=== PATIENT | female | born 1975 | race Caucasian/White ===

== ENCOUNTER 2024-05-13 13:22 | Outpatient (REF) | payer OTHER, SELFPAY ==
--- NOTE | ~2024-05-13 | MR_ITS ---
EXAMINATION: MR SHOULDER WITH INTRA-ARTICULAR CONTRAST (ARTHROGRAM), RIGHT CLINICAL INFORMATION: Right shoulder pain following injury. Decreased range of motion. COMPARISON: Right shoulder fluoroscopic arthrography done earlier the same day. TECHNIQUE: MRI of the shoulder was performed following the intra-articular administration of a dilute gadolinium-containing solution (arthrogram) on a high-field scanner. FINDINGS: ROTATOR CUFF: Mild infraspinatus tendinosis. Posterior articular surface partial tearing measuring 1.0 x 0.9 cm (AP x ML). Bursal surface tendon fibers remain intact. No full-thickness rotator cuff tendon tear. No muscle atrophy or fatty infiltration. BICEPS: Intact. CORACOACROMIAL ARCH: The undersurface of the acromion is flat with no subacromial spur. [id number] acromioclavicular osteoarthritis. Trace fluid within the subacromial subdeltoid bursa, consistent with minimal bursitis. LABRUM/CAPSULE: Linear contrast within the undersurface of the superior, posterosuperior, posterior, and posteroinferior labrum, consistent with undersurface tearing. Blunting and heterogeneity through the anterior and anteroinferior labrum consistent with degenerative tearing. Intact inferior joint capsule. GLENOHUMERAL JOINT/MARROW: Mild chronic posterior subluxation of the humeral head. Posterior glenoid articular cartilage fissuring with subchondral cystic change and marginal osteophytes. No acute osseous injury. Loose body anterior to the glenoid measuring up to 1.1 cm. MR/MR shoulder RT w con IMPRESSION: 1. Mild infraspinatus tendinosis with posterior articular surface partial tearing measuring 1.0 x 0.9 cm (AP x ML). No full-thickness rotator cuff tendon tear. 2. [id number] acromioclavicular osteoarthritis. Minimal subacromial subdeltoid bursitis. 3. Nondisplaced undersurface tearing of the superior, posterosuperior, posterior, and posteroinferior labrum as well as degenerative tearing through the anterior and anteroinferior labrum. 4. Chronic posterior subluxation of the humeral head with moderate glenohumeral osteoarthritis. Loose body anterior to the glenoid measuring up to 1.1 cm. Electronically signed by: Cesar Mason MD 05/24/2024 06:47 AM EDT RP
--- NOTE | ~2024-05-13 | FL_ITS ---
FLUOROSCOPIC RIGHT SHOULDER ARTHROGRAM LEFT: Right shoulder pain. Intra-articular gadolinium injection is needed prior to MRI. TECHNIQUE: Procedure: Risks and benefits and possible complications were discussed with the patient and the consent form was signed. The patient was placed supine on the fluoroscopy table. The right shoulder was prepped and draped in normal sterile fashion. 1% buffered lidocaine was used for anesthesia. A 22-gauge spinal needle was used to access the shoulder joint. Intra-articular position of the needle within the shoulder joint was verified using 3 cc of Omnipaque 300. A total of 10 mL of gadolinium/saline (1:200) contrast mixture was then injected into the shoulder joint. The needle was then removed and a Band-Aid was applied to the injection site. The patient tolerated the procedure well and was sent to MRI. There were no immediate complications. Spot image after contrast injection demonstrates no evidence of full-thickness cuff tear. Mild AC joint arthritis. FL/FL arthrogram shoulder RT IMPRESSION: -Successful fluoroscopic guided intra-articular instillation of dilute gadolinium into the right shoulder joint. Patient will undergo subsequent right shoulder MRI. The procedure was performed by laura Valenzuela PA-C, and directly supervised by Dr. Helms. Electronically signed by: Corey Helms MD 05/27/2024 12:47 PM EDT
[2024-05-13] MEDS: gadobutroL 10 ML VIAL IVPUSH (16:39)
== END 2024-05-13 13:23 | disposition home or self-care (01) ==
LOC: HO.XRAY 13:22
PROVIDERS: Visit Provider Student in an Organized Health Care Education/Training Program
DX: M25.511 Pain in right shoulder (principal)
CPT/HCPCS: 23350; 73040; 73222; A9585

== ENCOUNTER → 2024-05-13 14:55 | Outpatient (BNV) | payer OTHER, SELFPAY | PROVIDERS: Visit Provider Physician Assistant Surgical | DX: M25.511 Pain in right shoulder (principal) | CPT/HCPCS: 23350; 73040 ==